=== PATIENT | female | born 1945 | race Caucasian/White ===

== ENCOUNTER 2016-11-09 18:39 | Emergency (ER) | payer OTHER ==
[~2016-11-09] VITALS: Ht 172.7 cm; Wt 94.3 kg
--- NOTE | 2016-11-09 18:40 | NUR ---
AAOX3, [id number] FROM RENAL: BLEEDING PRAMOD DIALYSIS AVF S/P HEMODIALYSIS. PATIENT CAME IN WITH CLAMP AND TAPES BUT STILL ACTIVELY BLEEDING. SKIN IS WARM AND DRY. RESP IS EVEN AND UNLABORED WITH NAD NOTED. DR FINN AT BS FOR EVAL.
--- NOTE | 2016-11-09 19:00 | NUR ---
REPORT GIVEN TO ANTOINE DREW FOR LORI
--- NOTE | 2016-11-09 19:02 | NUR ---
RECEIVED REPORT FROM ANTOINE PENALOZA.
[2016-11-09] MEDS ORDERED: GELATIN SPONGE,ABSORBABLE 1 SPONGE SPONGE TP ONE (19:03)
--- NOTE | 2016-11-09 19:04 | NUR ---
DR. FINN AT BEDSIDE FOR EVAL. PRESSURE APPLIED TO LEFT ARM AV SHUNT. BLEEDING NOTED.
--- NOTE | 2016-11-09 19:28 | NUR ---
PER DR. FINN BLEEDING HAS SUBSIDED WITH PRESSURE APPLIED.
--- NOTE | 2016-11-09 19:36 | NUR ---
CALLED [facility] TO INITIATE FIRST CALL.
[2016-11-09 19:46] LABS: BASOPHILS % (AUTO) 0.4 % (0.0-2.0); EOSINOPHILS # (AUTO) 0.6 /CMM (0.0-0.7); EOSINOPHILS % (AUTO) 7.3 % (0.0-6.0); HEMATOCRIT 34 % (33-45); HEMOGLOBIN 10.9 g/dL (11.5-14.8); LYMPHOCYTES % (AUTO) 24.6 % (20.0-44.0); MEAN CORPUSCULAR HEMOGLOBIN 28 PG (26.0-33.0); MEAN CORPUSCULAR HGB CONC 32 g/dl (31.0-36.0); MEAN CORPUSCULAR VOLUME 87 fL (82-100); MONOCYTES # (AUTO) 0.8 /CMM (0.1-1.30); MONOCYTES % (AUTO) 10.4 % (2.0-12.0); NEUTROPHILS # (AUTO) 4.7 /CMM (1.8-8.9); NEUTROPHILS % (AUTO) 57.3 % (43.0-81.0); PLATELET COUNT (AUTO) 267 /CMM (150-450); RDW COEFFICIENT OF VARIATION 14.9 (11.5-15.0); RED BLOOD CELL COUNT(AUTO) 3.86 MIL/uL (4.0-5.2); WHITE BLOOD COUNT (AUTO) 8.1 K/uL (4.3-11.0)
[2016-11-09 19:56] LABS: CALCIUM, SERUM 8.9 mg/dL (8.5-10.1); CARBON DIOXIDE 28 mmol/L (21-32); CHLORIDE 100 mmol/L (98-107); CREATININE 4.5 mg/dL (0.6-1.3); GLUCOSE 116 mg/dL (74-106); POTASSIUM 4.3 mmol/L (3.5-5.1); SODIUM SERUM 136 mmol/L (136-145); UREA NITROGEN, BLOOD 18 mg/dL (7-18)
[2016-11-09 20:00] LABS: INR 1.01 (0.87-1.13); PROTHROMBIN TIME 10.5 SECS (9.5-12.7)
--- NOTE | 2016-11-09 20:17 | NUR ---
PER DR. FINN OKAY TO EAT SANDWICH.
--- NOTE | 2016-11-09 20:26 | NUR ---
CASE ASSIGNED TO CHERI GRIFFITHS
--- NOTE | 2016-11-09 21:46 | NUR ---
PRESSURE DRESSING APPLIED TO LEFT ARM PER MD ORDER.
--- NOTE | 2016-11-09 21:52 | NUR ---
PT NOTED WITH STEADY GAIT, MD JOHNSON MADE AWARE, DRESSING INTACT, NO ACTIVE BLEEDING
--- NOTE | 2016-11-09 22:04 | NUR ---
DR. FINN AT BEDSIDE SPEAKING TO PT REGARDING POC.
--- NOTE | 2016-11-09 22:11 | NUR ---
Patient discharged to home in stable condition. Written and verbal after care instructions given. Patient verbalizes understanding of instruction. pt ambulatory with a steady gait pt wheelchaired out per request, stable.
[2016-11-09 22:13] VITALS: BP 129/78
== END 2016-11-09 22:14 | disposition home or self-care (01) ==
LOC: ER 18:40
DX: T82.838A Hemorrhage due to vascular prosthetic devices, implants and grafts, initial encounter (principal); I12.0 Hypertensive chronic kidney disease with stage 5 chronic kidney disease or end stage renal disease; N18.6 End stage renal disease; N19 Unspecified kidney failure; Z88.1 Allergy status to other antibiotic agents; Z88.8 Allergy status to other drugs, medicaments and biological substances; Z94.0 Kidney transplant status
CPT/HCPCS: 36415; 80048; 85025; 85730; 99291; A4606; A6402; Z7610

== ENCOUNTER 2016-11-11 15:20 | Emergency (ER) | payer OTHER ==
[~2016-11-11] VITALS: Ht 175.3 cm; Wt 78.0 kg
--- NOTE | 2016-11-11 15:24 | NUR ---
AAOX3, BIBRA 37 FROM DIALYSIS CENTER FOR AV SHUNT BLEEDING, NO DIALYSIS TODAY. PATIENT WAS HERE 2 DAYS AGO FOR SAME REASON. RR IS EVEN AND UNLABORED WITH NAD NOTED. SKIN IS WARM AND DRY. DR CARR AT FOR EVAL.
--- NOTE | 2016-11-11 15:25 | NUR ---
PATIENT CAME IN WITH A CLAMP AND TAPES AROUND IT. NOT ACTIVELY BLEEDING AT THIS TIME.
[2016-11-11 15:49] LABS: BASOPHILS # (AUTO) 0.1 /CMM (0.0-0.2); BASOPHILS % (AUTO) 0.8 % (0.0-2.0); EOSINOPHILS # (AUTO) 0.6 /CMM (0.0-0.7); HEMATOCRIT 29 % (33-45); HEMOGLOBIN 9.8 g/dL (11.5-14.8); LYMPHOCYTES # (AUTO) 2.5 /CMM (0.8-4.8); LYMPHOCYTES % (AUTO) 30.2 % (20.0-44.0); MEAN CORPUSCULAR HEMOGLOBIN 30 PG (26.0-33.0); MEAN CORPUSCULAR HGB CONC 34 g/dl (31.0-36.0); MEAN CORPUSCULAR VOLUME 87 fL (82-100); MONOCYTES # (AUTO) 0.7 /CMM (0.1-1.30); NEUTROPHILS # (AUTO) 4.4 /CMM (1.8-8.9); PLATELET COUNT (AUTO) 247 /CMM (150-450); RDW COEFFICIENT OF VARIATION 15.4 (11.5-15.0); RED BLOOD CELL COUNT(AUTO) 3.34 MIL/uL (4.0-5.2); WHITE BLOOD COUNT (AUTO) 8.3 K/uL (4.3-11.0)
[2016-11-11 15:58] LABS: CALCIUM, SERUM 8.1 mg/dL (8.5-10.1); CARBON DIOXIDE 27 mmol/L (21-32); CHLORIDE 101 mmol/L (98-107); GLUCOSE 112 mg/dL (74-106); POTASSIUM 5.3 mmol/L (3.5-5.1); SODIUM SERUM 136 mmol/L (136-145); UREA NITROGEN, BLOOD 63 mg/dL (7-18)
[2016-11-11 16:01] LABS: CREATININE 9.4 mg/dL (0.6-1.3)
[2016-11-11 16:02] LABS: INR 0.98 (0.87-1.13); PROTHROMBIN TIME 10.2 SECS (9.5-12.7)
--- NOTE | 2016-11-11 16:30 | NUR ---
INITIATED CALL WITH MARKESAN EPRP AND CHERI GRIFFITHS WAS PAGED
--- NOTE | 2016-11-11 17:15 | NUR ---
PT IS ACCPETED [facility]. NUMBER TO CALL REPORT [phone]. ACCEPTING MD IS DR MAYES. PT WILL GO BY BLS ETA APPROX 1 HOUR.
--- NOTE | 2016-11-11 17:48 | NUR ---
REPORT GIVEN TO ANTOINE [facility]. QUESTIONS ANSWERED.
--- NOTE | 2016-11-11 18:15 | NUR ---
AMBULANCE DELAYED TO 190
[2016-11-11 19:02] VITALS: BP 132/84
--- NOTE | 2016-11-11 19:03 | NUR ---
Patient TRANSFERRED TO [facility] in stable condition VIA AMBULANCE. Written and verbal after care instructions given. Patient verbalizes understanding of instruction.
== END 2016-11-11 19:05 | disposition short-term general hospital (02) ==
LOC: ER 15:22
DX: T82.838A Hemorrhage due to vascular prosthetic devices, implants and grafts, initial encounter (principal); I12.0 Hypertensive chronic kidney disease with stage 5 chronic kidney disease or end stage renal disease; N18.6 End stage renal disease; I70.0 Atherosclerosis of aorta; Z99.2 Dependence on renal dialysis; Z88.8 Allergy status to other drugs, medicaments and biological substances; Z88.1 Allergy status to other antibiotic agents; Z94.0 Kidney transplant status
CPT/HCPCS: 36415; 71010; 80048; 85025; 85730; 99285; A4606; Z7610

== ENCOUNTER 2016-11-19 07:51 | Emergency (ER) | payer OTHER ==
[~2016-11-19] VITALS: Ht 175.3 cm; Wt 81.6 kg
[2016-11-19 07:51] VITALS: BP 155/101
--- NOTE | 2016-11-19 07:51 | NUR ---
BBRA FROM HOME FOR LEFT UA HD SITE PROFUSELY BLEEDING THIS AM. NAD NOTED. PT AAO X4, AMB WITH STEADY GAIT. RR EVEN AND UNLABORED. VSS. PRESSURE BANDAGE NOTED ON ARRIVAL. DR CARR AT BEDSIDE FOR EVAL.
--- NOTE | 2016-11-19 08:03 | NUR ---
CHERI EPRP CALLED [phone]
[2016-11-19 08:21] LABS: BASOPHILS # (AUTO) 0.1 /CMM (0.0-0.2); BASOPHILS % (AUTO) 0.9 % (0.0-2.0); EOSINOPHILS # (AUTO) 0.6 /CMM (0.0-0.7); EOSINOPHILS % (AUTO) 7.7 % (0.0-6.0); HEMATOCRIT 27 % (33-45); HEMOGLOBIN 8.6 g/dL (11.5-14.8); LYMPHOCYTES # (AUTO) 2.1 /CMM (0.8-4.8); LYMPHOCYTES % (AUTO) 25.4 % (20.0-44.0); MEAN CORPUSCULAR HEMOGLOBIN 28 PG (26.0-33.0); MEAN CORPUSCULAR HGB CONC 32 g/dl (31.0-36.0); MEAN CORPUSCULAR VOLUME 89 fL (82-100); MONOCYTES # (AUTO) 0.6 /CMM (0.1-1.30); MONOCYTES % (AUTO) 7.7 % (2.0-12.0); NEUTROPHILS # (AUTO) 4.8 /CMM (1.8-8.9); NEUTROPHILS % (AUTO) 58.3 % (43.0-81.0); PLATELET COUNT (AUTO) 283 /CMM (150-450); RDW COEFFICIENT OF VARIATION 16.5 (11.5-15.0); RED BLOOD CELL COUNT(AUTO) 3.04 MIL/uL (4.0-5.2); WHITE BLOOD COUNT (AUTO) 8.3 K/uL (4.3-11.0)
[2016-11-19 08:34] LABS: CALCIUM, SERUM 8.2 mg/dL (8.5-10.1); CARBON DIOXIDE 28 mmol/L (21-32); CHLORIDE 106 mmol/L (98-107); GLUCOSE 140 mg/dL (74-106); POTASSIUM 4.3 mmol/L (3.5-5.1); SODIUM SERUM 145 mmol/L (136-145); UREA NITROGEN, BLOOD 19 mg/dL (7-18)
[2016-11-19 08:39] LABS: INR 0.99 (0.87-1.13); PROTHROMBIN TIME 10.6 SECS (9.5-12.7)
--- NOTE | 2016-11-19 08:39 | NUR ---
CHERI EPRP CALLED [phone] CARR
[2016-11-19 08:40] LABS: CREATININE 5.3 mg/dL (0.6-1.3)
--- NOTE | 2016-11-19 08:46 | NUR ---
dr mirella strong Addendum: 11/19/16 at 1949 by TRINA jigna conway animal control officer
--- NOTE | 2016-11-19 09:29 | NUR ---
[facility] [phone] CARR
--- NOTE | 2016-11-19 09:30 | NUR ---
DR PÉREZ AT BEDSIDE FOR SUTURE PLACEMENT
--- NOTE | 2016-11-19 10:00 | NUR ---
[facility] TRANSFER INFO: PT WILL GO TO ER [phone]. ACCE[address] PHYS[address]IAN DR MAYES, ETA [phone]
--- NOTE | 2016-11-19 10:06 | NUR ---
REPORT GIVEN TO CHANO SCHULTZ FROM [facility]
--- NOTE | 2016-11-19 11:06 | NUR ---
PT LEAVING VIA AMBULANCE TO [facility] IN STABLE CONDITION. NAD NOTED. VSS. SITE INTACT. NOT BLEEDING AT THIS TIME. NO FURTHER COMPLAINTS.
== END 2016-11-19 11:05 | disposition short-term general hospital (02) ==
LOC: ER 07:53
DX: T82.7XXA Infection and inflammatory reaction due to other cardiac and vascular devices, implants and grafts, initial encounter (principal); I12.0 Hypertensive chronic kidney disease with stage 5 chronic kidney disease or end stage renal disease; N18.6 End stage renal disease; Z94.0 Kidney transplant status; Z88.1 Allergy status to other antibiotic agents; Z88.8 Allergy status to other drugs, medicaments and biological substances; Y92.89 Other specified places as the place of occurrence of the external cause
CPT/HCPCS: 36415; 80048; 85025; 85610; 85730; 86850; 99291; 99292; A4606; A6402; A6403 ×3; Z7610

== ENCOUNTER 2017-04-22 00:38 | Emergency (ER) | payer OTHER ==
[~2017-04-22] VITALS: Ht 175.3 cm; Wt 81.6 kg
[2017-04-22] MEDS ORDERED: GELATIN SPONGE,ABSORBABLE 1 SPONGE SPONGE TP ONE ×2 (00:47→01:00)
[2017-04-22 01:23] VITALS: BP 149/109
== END 2017-04-22 01:23 | disposition home or self-care (01) ==
LOC: ER 00:40
DX: Z49.01 Encounter for fitting and adjustment of extracorporeal dialysis catheter (principal); I12.0 Hypertensive chronic kidney disease with stage 5 chronic kidney disease or end stage renal disease; N18.6 End stage renal disease; Z88.1 Allergy status to other antibiotic agents; Z94.0 Kidney transplant status; Z99.2 Dependence on renal dialysis; Z88.8 Allergy status to other drugs, medicaments and biological substances
CPT/HCPCS: 99283; A4606 ×2; A6402; A6403; Z7610

== ENCOUNTER 2017-07-21 21:39 | Emergency (ER) | payer OTHER ==
[2017-07-21] MEDS ORDERED: GELATIN SPONGE,ABSORBABLE 1 SPONGE SPONGE TP ONE (22:46)
[2017-07-21] MEDS ORDERED: CELLULOSE,OXIDIZED 1 EA PACK MC ONE (23:00)
[2017-07-22] MEDS ORDERED: GELATIN SPONGE,ABSORBABLE 1 SPONGE SPONGE TP ONE (01:30)
== END 2017-07-22 01:55 | disposition short-term general hospital (02) ==
DX: T82.838A Hemorrhage due to vascular prosthetic devices, implants and grafts, initial encounter (principal); I12.0 Hypertensive chronic kidney disease with stage 5 chronic kidney disease or end stage renal disease; N18.6 End stage renal disease; Z99.2 Dependence on renal dialysis; Z94.0 Kidney transplant status; Z88.1 Allergy status to other antibiotic agents; Z88.8 Allergy status to other drugs, medicaments and biological substances

== ENCOUNTER 2018-03-02 23:01 | Emergency (ER) | payer OTHER ==
[2018-03-02] MEDS ORDERED: GELATIN SPONGE,ABSORBABLE 1 SPONGE SPONGE TP ONE (23:54)
== END 2018-03-03 00:07 | disposition left against medical advice (07) ==
LOC: ER 23:03
DX: Z49.01 Encounter for fitting and adjustment of extracorporeal dialysis catheter (principal); K21.9 Gastro-esophageal reflux disease without esophagitis; I10 Essential (primary) hypertension; Z94.0 Kidney transplant status; Z88.1 Allergy status to other antibiotic agents; Z88.8 Allergy status to other drugs, medicaments and biological substances

== ENCOUNTER 2018-07-08 11:04 | Emergency (ER) | payer OTHER ==
[~2018-07-08] VITALS: Ht 175.3 cm; Wt 81.6 kg
[2018-07-08 11:10] VITALS: BP 179/83
--- NOTE | 2018-07-08 11:19 | NUR ---
PT REFUSED BLOOD DRAW AND IV ACCESS. MD MATTHEW
--- NOTE | 2018-07-08 11:20 | NUR ---
pt refused ekg
== END 2018-07-08 11:42 | disposition home or self-care (01) ==
LOC: ER 11:07
DX: T82.318A Breakdown (mechanical) of other vascular grafts, initial encounter (principal); I12.0 Hypertensive chronic kidney disease with stage 5 chronic kidney disease or end stage renal disease; N18.6 End stage renal disease; E03.9 Hypothyroidism, unspecified; Z94.0 Kidney transplant status; Z88.1 Allergy status to other antibiotic agents; Z88.8 Allergy status to other drugs, medicaments and biological substances

== ENCOUNTER 2018-08-10 17:33 | Emergency (ER) ==
[~2018-08-10] VITALS: Ht 175.3 cm; Wt 83.0 kg
--- NOTE | 2018-08-10 17:35 | NUR ---
KIRSTIN rachel from dialysis center for PRAMOD AV fistula bleeding. RR is even and unlabored with nad noted. Skin is warm and dry. Placed on the monitor. Dr Recinos at BS for eval.
[2018-08-10] MEDS ORDERED: hydrALAZINE HCL IV 20 MG VIAL ONE (17:41)
[2018-08-10 17:58] LABS: BASOPHILS # (AUTO) 0.1 /CMM (0.0-0.2); BASOPHILS % (AUTO) 0.7 % (0.0-2.0); EOSINOPHILS % (AUTO) 3.3 % (0.0-6.0); HEMATOCRIT 41 % (33-45); LYMPHOCYTES # (AUTO) 1.3 /CMM (0.8-4.8); LYMPHOCYTES % (AUTO) 13.2 % (20.0-44.0); MEAN CORPUSCULAR HGB CONC 32 g/dl (31.0-36.0); MEAN CORPUSCULAR VOLUME 88 fL (82-100); MONOCYTES # (AUTO) 0.9 /CMM (0.1-1.30); NEUTROPHILS % (AUTO) 73.8 % (43.0-81.0); PLATELET COUNT (AUTO) 223 /CMM (150-450); RED BLOOD CELL COUNT(AUTO) 4.71 MIL/uL (4.0-5.2); WHITE BLOOD COUNT (AUTO) 9.5 K/uL (4.3-11.0)
[2018-08-10] MEDS ORDERED: hydrALAZINE HCL IV 20 MG VIAL IV ONE (18:00)
[2018-08-10 18:03] LABS: CALCIUM, SERUM 9.2 mg/dL (8.5-10.1); CARBON DIOXIDE 29 mmol/L (21-32); CHLORIDE 99 mmol/L (98-107); CREATININE 4.7 mg/dL (0.6-1.3); GLUCOSE 125 mg/dL (74-106); POTASSIUM 4.2 mmol/L (3.5-5.1); SODIUM SERUM 139 mmol/L (136-145); UREA NITROGEN, BLOOD 23 mg/dL (7-18)
--- NOTE | 2018-08-10 18:50 | NUR ---
PRAMOD AV fistula intact and not bleeding at this time. Dr Recinos at for eval. Changed the dressing and patient tolerated the procedure.
--- NOTE | 2018-08-10 18:51 | NUR ---
CALLED CHERI BOYER
--- NOTE | 2018-08-10 19:09 | NUR ---
REPORT RECEIVED FROM ANTOINE MACHADO FOR LORI.
--- NOTE | 2018-08-10 19:17 | NUR ---
IV removed. Catheter intact and site benign. Pressure and 4x4 applied to site. No bleeding noted.Patient discharged to home in stable condition. Written and verbal after care instructions given. Patient verbalizes understanding of instruction.
[2018-08-10 19:21] VITALS: BP 160/92
== END 2018-08-10 19:22 | disposition home or self-care (01) ==
LOC: ER 17:35
DX: T82.838A Hemorrhage due to vascular prosthetic devices, implants and grafts, initial encounter (principal); I12.0 Hypertensive chronic kidney disease with stage 5 chronic kidney disease or end stage renal disease; N18.6 End stage renal disease; Z99.2 Dependence on renal dialysis; Z94.0 Kidney transplant status; Z88.1 Allergy status to other antibiotic agents; Z88.8 Allergy status to other drugs, medicaments and biological substances
CPT/HCPCS: 36415; 71045; 80048; 84484; 85025; 93005; 96374; 99284; A6403; J0360

== ENCOUNTER 2019-12-04 18:59 | Emergency (ER) | payer OTHER ==
[~2019-12-04] VITALS: Ht 175.3 cm; Wt 79.4 kg
--- NOTE | 2019-12-04 19:05 | NUR ---
CAME IN FOR BLEEDING AT [facility] SHUNT x 10-15MIN CHARGEBACK SPECIALIST. DIALYSIS DONE EARLIER TODAY. CONTINUOUS PRESSURE APPLIED AT BLEEDING AREA. BROUGHT TO BED 9. HOOKED TO MONITOR. AWAITING MD BROWN.
--- NOTE | 2019-12-04 19:25 | NUR ---
BASKET WEAVER AT BEDSIDE FOR BLOOD DRAW
--- NOTE | 2019-12-04 19:26 | NUR ---
L UPPER ARM BLEEDING CONTROLLED
[2019-12-04 19:30] LABS: BASOPHILS # (AUTO) 0.1 /CMM (0.0-0.2); BASOPHILS % (AUTO) 1.5 % (0.0-2.0); EOSINOPHILS % (AUTO) 4.5 % (0.0-6.0); HEMATOCRIT 37 % (33-45); HEMOGLOBIN 11.9 g/dL (11.5-14.8); LYMPHOCYTES # (AUTO) 1.2 /CMM (0.8-4.8); MEAN CORPUSCULAR HGB CONC 32 g/dl (31.0-36.0); MEAN CORPUSCULAR VOLUME 89 fL (82-100); MONOCYTES # (AUTO) 0.6 /CMM (0.1-1.30); MONOCYTES % (AUTO) 10.3 % (2.0-12.0); NEUTROPHILS # (AUTO) 3.7 /CMM (1.8-8.9); NEUTROPHILS % (AUTO) 62.7 % (43.0-81.0); PLATELET COUNT (AUTO) 197 /CMM (150-450); RED BLOOD CELL COUNT(AUTO) 4.15 MIL/uL (4.0-5.2); WHITE BLOOD COUNT (AUTO) 5.9 K/uL (4.3-11.0)
--- NOTE | 2019-12-04 19:31 | NUR ---
EKG AT BEDSIDE
[2019-12-04 19:38] LABS: CALCIUM, SERUM 8.7 mg/dL (8.5-10.1); CARBON DIOXIDE 30 mmol/L (21-32); CHLORIDE 99 mmol/L (98-107); CREATININE 4.8 mg/dL (0.6-1.3); GLUCOSE 138 mg/dL (74-106); POTASSIUM 4.2 mmol/L (3.5-5.1); SODIUM SERUM 139 mmol/L (136-145); UREA NITROGEN, BLOOD 30 mg/dL (7-18)
--- NOTE | 2019-12-04 20:30 | NUR ---
TI LI MADE AWARE OF PT'S BP 194/96. PT STATED "MY BP IS HIGH BECAUSE I DIDNT TAKE MY NIGHT BP MEDICATIONS YET. I WILL TAKE IT UPON GOING HOME".
--- NOTE | 2019-12-04 20:31 | NUR ---
PT REFUSED THE RECOMMENDED DRESSING BY GUILLERMO LUKE. TI HUBBARD MADE AWARE.
--- NOTE | 2019-12-04 20:53 | NUR ---
Anibal EPRP called.
--- NOTE | 2019-12-04 21:42 | NUR ---
Patient discharged to home in stable condition. Written and verbal after care instructions given. Patient verbalizes understanding of instruction.
[2019-12-04 21:47] VITALS: BP 174/66
== END 2019-12-04 21:48 | disposition home or self-care (01) ==
LOC: ER 18:59
DX: T82.838A Hemorrhage due to vascular prosthetic devices, implants and grafts, initial encounter (principal); I12.0 Hypertensive chronic kidney disease with stage 5 chronic kidney disease or end stage renal disease; N18.6 End stage renal disease; Z99.2 Dependence on renal dialysis; Z94.0 Kidney transplant status; Z98.890 Other specified postprocedural states; Z88.1 Allergy status to other antibiotic agents; Z88.8 Allergy status to other drugs, medicaments and biological substances; Z60.2 Problems related to living alone
CPT/HCPCS: 36415; 80048-TC; 85025-TC; 85730-TC

== ENCOUNTER 2022-02-14 15:57 | Emergency (ER) | payer OTHER ==
--- NOTE | 2022-02-14 16:15 | NUR ---
BIBCAREGIVER C/O BLEEDING SHUNT BROUGHT IN VIA WHEELCHAIR. PLACED ON BED, BANDAGE AND PLASTIC CLAMP NOTED AT AFFECTED AREA, BREATHING EVEN AND UNLABORED.
--- NOTE | 2022-02-14 16:45 | NUR ---
AT BEDSIDE FOR EVAL.
--- NOTE | 2022-02-14 16:52 | NUR ---
MOLD INSPECTOR AT BEDSIDE
[2022-02-14 17:06] LABS: BASOPHILS % (AUTO) 0.6 % (0.0-2.0); EOSINOPHILS % (AUTO) 3.6 % (0.0-6.0); HEMATOCRIT 34 % (33-45); HEMOGLOBIN 10.5 g/dL (11.5-14.8); LYMPHOCYTES # (AUTO) 0.6 K/uL (0.8-4.8); LYMPHOCYTES % (AUTO) 12.7 % (20.0-44.0); MEAN CORPUSCULAR HGB CONC 31 g/dl (31.0-36.0); MEAN CORPUSCULAR VOLUME 87 fL (82-100); MONOCYTES # (AUTO) 0.6 K/uL (0.1-1.30); MONOCYTES % (AUTO) 11.8 % (2.0-12.0); NEUTROPHILS # (AUTO) 3.5 K/uL (1.8-8.9); NEUTROPHILS % (AUTO) 71.3 % (43.0-81.0); PLATELET COUNT (AUTO) 127 K/uL (150-450); RED BLOOD CELL COUNT(AUTO) 3.84 MIL/uL (4.0-5.2); WHITE BLOOD COUNT (AUTO) 4.9 K/uL (4.3-11.0)
[2022-02-14 17:40] LABS: ALANINE AMINOTRANSFERASE 8 U/L (12-78); ALBUMIN 3.2 g/dL (3.4-5.0); ALKALINE PHOSPHATASE 71 U/L (46-116); ASPARTATE AMINOTRANSFERASE 9 U/L (15-37); BILIRUBIN,TOTAL 0.9 mg/dL (0.2-1.0); CALCIUM, SERUM 9.2 mg/dL (8.5-10.1); CARBON DIOXIDE 29 mmol/L (21-32); CHLORIDE 101 mmol/L (98-107); CREATININE 3.9 mg/dL (0.6-1.3); GLUCOSE 108 mg/dL (74-106); POTASSIUM 3.8 mmol/L (3.5-5.1); SODIUM SERUM 139 mmol/L (136-145); UREA NITROGEN, BLOOD 31 mg/dL (7-18)
[2022-02-14 17:51] VITALS: BP 165/95
== END 2022-02-14 17:25 | disposition home or self-care (01) ==
LOC: ER 16:02
DX: T82.838A Hemorrhage due to vascular prosthetic devices, implants and grafts, initial encounter (principal); I12.0 Hypertensive chronic kidney disease with stage 5 chronic kidney disease or end stage renal disease; N18.6 End stage renal disease; Z99.2 Dependence on renal dialysis; Z94.0 Kidney transplant status
CPT/HCPCS: 36415; 80053-TC; 85025-TC; 85730-TC